=== PATIENT | female | born 1970 | race Caucasian/White ===

== ENCOUNTER 2019-12-07 01:50 | Inpatient (IN) | payer OTHER ==
[2019-12-07] VITALS (8 sets, daily range): BP systolic 106–128; BP diastolic 56–78
[~2019-12-07] VITALS: Ht 160 cm; Wt 89.0 kg
[~2019-12-07 01:50] MED LIST: ATIVAN0.5 MG PO; PREDNISONE10 MG PO
[2019-12-07 02:32] LABS: BILIRUBIN NEGATIVE (NEGATIVE); BLOOD 2+ (NEGATIVE); CLARITY CLEAR (CLEAR); COLOR YELLOW (YELLOW); GLUCOSE NEGATIVE (NEGATIVE); KETONE 1+ (NEGATIVE); NITRITE NEGATIVE (NEGATIVE); SPECIFIC GRAVITY 1.015 (1.005-1.030); UROBILINOGEN 0.2 E.U./dl (0.2-1.0)
[2019-12-07 02:35] LABS: LEUKO ESTERASE NEGATIVE (NEGATIVE)
[2019-12-07 02:37] LABS: BACTERIA 1+
[2019-12-07 02:50] LABS: BASO % 0.1 % (0.0-1.0); EOS % 0.1 % (1.0-4.0); HEMATOCRIT 40.6 % (37.0-47.0); LYMPH # 1.8 10*3/uL (1.3-4.4); LYMPH % 12.8 % (27.0-41.0); MEAN CELL VOLUME 90.4 fl (81.0-99.0); MEAN CORPUSCULAR HGB 30.5 pg (27.0-31.0); MEAN CORPUSCULAR HGB CONC 33.7 g/dl (33.0-37.0); MEAN PLATELET VOLUME 10.9 fl (9.6-12.3); MONO # 0.9 10*3/uL (0.1-1.0); MONO % 5.9 % (3.0-9.0); NEUT # 11.6 10*3/uL (2.3-7.9); NEUT % 80.8 % (47.0-73.0); PLATELET COUNT AUTOMATED 248 10*3/uL (130-400); RED BLOOD COUNT 4.49 10*6/uL (4.10-5.10); RED CELL DISTRI WIDTH 12.9 % (0-14.5); WHITE BLOOD COUNT 14.3 10*3/uL (4.8-10.8)
[2019-12-07 03:05] LABS: ALBUMIN 3.5 gm/dl (3.1-4.5); ALKALINE PHOSPHATASE 75 U/L (45-117); BUN 14 mg/dl (7-24); CHLORIDE 106 mmol/L (98-107); CREATININE 0.91 mg/dL (0.55-1.02); LIPASE 59 U/L (73-393); POTASSIUM 3.5 mmol/L (3.5-5.1); SGOT/AST 13 IU/L (3-35); SGPT/ALT 18 U/L (12-78); SODIUM 137 mmol/L (136-145)
--- NOTE | 2019-12-07 03:22 | NUR ---
PT RESTING ON CART, DRINKING IV DYE FOR CT. REPORTS MEDICATION HELPED PAIN AND NAUSEA. DENIES UNMET NEEDS. CALL LIGHT IN REACH. WILL CONTINUE TO MONITOR.
--- NOTE | 2019-12-07 06:35 | NUR ---
PT REPORTS WORSENING PAIN, DR BAILEY AWARE.
--- NOTE | 2019-12-07 06:47 | NUR ---
PT GIVEN ADDITIONAL DOSE PAIN MEDICATION, RESTING ON CART, C/O CONTINUED SEVERE ABDOMINAL PAIN. CALL LIGHT IS IN REACH. PT AWARE OF PLAN FOR ADMISSION AND WAITING ON BED. PT DENIES FURTHER NEEDS. WILL CONTINUE TO MONITOR.
--- NOTE | 2019-12-07 07:02 | NUR ---
REPORT TO DEVIKA SHAFFER
--- NOTE | 2019-12-07 07:48 | NUR ---
PT RESTING COMFORTABLY. SAFETY PRECAUTIONS INTACT. WILL CONTINUE TO MONITOR.
--- NOTE | 2019-12-07 08:08 | NUR ---
Time: 808 A 49 year old FEMALE admitted to 5E under services of NOLBERTO COSBY DO. Pt. arrived via stretcher from ER. Chief complaint: ABDOMINAL PAIN AND RECTAL BLEEDING. KENY VELASCO
[2019-12-07] MEDS ORDERED: COLACE100 MG PO (08:25)
[2019-12-07] MEDS ORDERED: ASPIRIN81 M1 PO (08:25)
--- NOTE | 2019-12-07 09:23 | NUR ---
MORPHINE 2MG IV GIVEN PER PATIENT REQUEST FOR ABDOMINAL PAIN RATING A 7/10.
--- NOTE | 2019-12-07 09:37 | NUR ---
DR MILLAN NOTIFIED OF CONSULT.
--- NOTE | 2019-12-07 10:15 | NUR ---
MORPHINE NOT EFFECTIVE FOR PAIN AT THIS TIME. NORCO 5/325 PO GIVEN PER PATIENT REQUEST.
--- NOTE | 2019-12-07 11:15 | NUR ---
RESTING WITH EYES CLOSED. NO SIGNS OF PAIN AT THIS TIME. PAIN MEDICATION EFFECTIVE.
--- NOTE | 2019-12-07 13:56 | NUR ---
MORHINE 2MG IV GIVEN PER PATIENT REQUEST FOR 1010 ABDOMINAL PAIN.
--- NOTE | 2019-12-07 15:19 | NUR ---
norco 5/325 given per patient request for abdominal pain rating a 10/10.
--- NOTE | 2019-12-07 16:04 | NUR ---
PT STATES THAT [place] HELPED WILL MONITOR CALL LIGHT WITHIN REACH
--- NOTE | 2019-12-07 18:03 | NUR ---
PT REQUESTED AND GIVEN MORPHINE FOR C/O ABD PAIN PT RATES PAIN 8 WILL MONITOR
--- NOTE | 2019-12-07 18:40 | NUR ---
PT STATES THAT MORPHINE HELPED WILL CONT TO MONITOR
--- NOTE | 2019-12-07 18:46 | NUR ---
PT MEDICATED WITH IV ZOFRAN FOR C/O NAUSEA. WILL MONITOR
--- NOTE | 2019-12-07 19:20 | NUR ---
REPORT RECEIVED FROM ZAKI FORTUNE. PT LYING IN BED AT THIS TIME. PT STATES ZOFRAN HELPED HER NAUSEA. CALL LIGHT IN REACH
--- NOTE | 2019-12-07 20:47 | NUR ---
PT MEDICATED WITH NORCO FOR COMPLAINTS OF ABDOMINAL PAIN. WILL MONITOR EFFECTIVENESS
--- NOTE | 2019-12-07 21:15 | NUR ---
NORCO APPEARS EFFECTIVE, PT SLEEPING AT THIS TIME.
[2019-12-08] VITALS: BP 106/52
--- NOTE | 2019-12-08 00:52 | NUR ---
NORCO GIVEN PER ORDER FOR COMPLAINTS OF ABDOMINAL PAIN/CRAMPING. WILL MONITOR EFFECTIVENESS
--- NOTE | 2019-12-08 01:35 | NUR ---
PT SLEEPING, NORCO APPEARS EFFECTIVE
--- NOTE | 2019-12-08 05:19 | NUR ---
NORCO GIVEN FOR COMPLAINTS OF ABDOMINAL PAIN. WILL MONITOR EFFECTIVENESS.
--- NOTE | 2019-12-08 06:00 | NUR ---
PER PT, NORCO HELPED. PT STATES "I FEEL SO MUCH BETTER"
[2019-12-08 08:00] VITALS: BP 109/76
[2019-12-08 08:11] LABS: ACT PARTIAL THROMBO TIME 28.7 SECONDS (20.0-32.1)
[2019-12-08 08:13] LABS: BASO % 0.3 % (0.0-1.0); EOS # 0.2 10*3/uL (0.0-0.4); EOS % 1.6 % (1.0-4.0); HEMATOCRIT 37.4 % (37.0-47.0); LYMPH % 23.1 % (27.0-41.0); MEAN CORPUSCULAR HGB 30.8 pg (27.0-31.0); MEAN CORPUSCULAR HGB CONC 32.6 g/dl (33.0-37.0); MEAN PLATELET VOLUME 11.7 fl (9.6-12.3); MONO % 7.9 % (3.0-9.0); NEUT # 8.7 10*3/uL (2.3-7.9); NEUT % 66.6 % (47.0-73.0); PLATELET COUNT AUTOMATED 198 10*3/uL (130-400); RED BLOOD COUNT 3.96 10*6/uL (4.10-5.10); RED CELL DISTRI WIDTH 13.2 % (0-14.5); WHITE BLOOD COUNT 13.1 10*3/uL (4.8-10.8)
[2019-12-08 08:15] LABS: BUN 6 mg/dl (7-24); CHLORIDE 110 mmol/L (98-107); CHOLESTEROL 177 mg/dL (<200); CREATININE 0.82 mg/dL (0.55-1.02); HDL CHOLESTEROL 49 mg/dl (40-60); LDL CHOLESTEROL 111 mg/dL (9-159); MEAN CELL VOLUME 94.4 fl (81.0-99.0); POTASSIUM 3.6 mmol/L (3.5-5.1); SODIUM 141 mmol/L (136-145); TRIGLYCERIDES 87 mg/dl (<150); VLDL CHOLESTEROL 17 mg/dL (6-40)
[2019-12-08 12:00] VITALS: BP 131/68
--- NOTE | 2019-12-08 15:04 | NUR ---
Marketing Strategy Analyst in to talk to patient. Patient states lives at HOME with . There are FEW steps in the home. Physician: NONE AT THIS TIME Pharmacy: [facility] Home health services: NONE Patient's level of ADLs: INDEPENDENT Patient has working utilities: YES DME: NONE Follow-up physician's appointment after d/c: WILL FIND ONE AND MAKE APPOINTMENT ON DISCHARGE Does patient want to access PORTAL?: NO Discharge plan PT LIVES AT HOME WITH HER AND IS INDEPENDENT IN HER CARE. DENIES SHE WILL HAVE NEEDS ON DISCHARGE. PLAN IS TO RETURN HOME WHEN MEDICALLY STABLE. WILL CONTINUE TO FOLLOW.. KARISSA PEREZ
[2019-12-08 16:00] VITALS: BP 126/67
--- NOTE | 2019-12-08 16:05 | NUR ---
MEDICATED WITH PRN NORCO PER ORDER AND REQUEST FOR ABDOMINAL PAIN RATED AT A 8 OUT OF 10.
--- NOTE | 2019-12-08 17:00 | NUR ---
JEAN CARLOS HELPED.
[2019-12-08 20:00] VITALS: BP 129/68
--- NOTE | 2019-12-08 20:07 | NUR ---
PT MEDICATED W/ZOFRAN FOR C/O NAUSEA AND MORPHINE IVP FOR C/O DIFFUSE ABD PAIN 02/21. CALL LIGHT IN REACH.
--- NOTE | 2019-12-08 20:59 | NUR ---
PT MEDICATED W/NORCO FOR C/O DIFFUSE ABD CRAMPING 11/21.
--- NOTE | 2019-12-08 21:59 | NUR ---
PT RESTING QUIETLY IN BED. PRN NORCO EFFECTIVE FOR PAIN RELIEF. PT ANXIOUS. WORRIED ABOUT NOT BEING ABLE TO SLEEP, HER IV, HER STOOL SMELLING FOUL, ETC. PT TEACHING AND COMFORT GIVEN. CALL LIGHT IN REACH.
[2019-12-09] VITALS: BP 106/63
--- NOTE | 2019-12-09 01:11 | NUR ---
PT MEDICATED W/NORCO FOR C/O DIFFUSE ABD CRAMPING 12/22.
--- NOTE | 2019-12-09 02:10 | NUR ---
PT RESTING QUIETLY IN BED. NO S/S OF DISTRESS NOTED. PRN NORCO EFFECTIVE.
[2019-12-09 04:00] VITALS: BP 135/81
--- NOTE | 2019-12-09 05:36 | NUR ---
PT C/O DIZZINESS. BILATERAL HAND TREMORS NOTED. BS 87. BP 135/81. HR 64. PT GIVEN GINGERALE PER HER REQUEST. WILL CONTINUE TO MONITOR. CALL LIGHT IN REACH.
[2019-12-09 06:01] LABS: BASO % 0.3 % (0.0-1.0); EOS # 0.2 10*3/uL (0.0-0.4); EOS % 1.2 % (1.0-4.0); HEMATOCRIT 36.5 % (37.0-47.0); LYMPH # 3.6 10*3/uL (1.3-4.4); MEAN CELL VOLUME 93.6 fl (81.0-99.0); MEAN CORPUSCULAR HGB CONC 33.2 g/dl (33.0-37.0); MEAN PLATELET VOLUME 11.2 fl (9.6-12.3); MONO # 0.9 10*3/uL (0.1-1.0); MONO % 6.7 % (3.0-9.0); NEUT % 65.5 % (47.0-73.0); PLATELET COUNT AUTOMATED 189 10*3/uL (130-400); WHITE BLOOD COUNT 13.7 10*3/uL (4.8-10.8)
[2019-12-09 06:03] LABS: BUN 5 mg/dl (7-24); CHLORIDE 111 mmol/L (98-107); CREATININE 0.81 mg/dL (0.55-1.02); POTASSIUM 3.4 mmol/L (3.5-5.1); SODIUM 141 mmol/L (136-145)
--- NOTE | 2019-12-09 06:11 | NUR ---
PT MEDICATED W/IVP ZOFRAN FOR C/O NAUSEA. PT SITTING IN RECLINER CHAIR IN ROOM.
--- NOTE | 2019-12-09 07:58 | NUR ---
FLEXERIL GIVEN PER REQUEST OF KNEE PAIN/MUSCHLE SPASMS. WILL MONITOR. CALL LIGHT IN REACH.
[2019-12-09 08:00] VITALS: BP 127/63
--- NOTE | 2019-12-09 08:46 | NUR ---
FLEXERIL INEFFECTIVE. WILL GIVE PERCOCET.
--- NOTE | 2019-12-09 09:10 | NUR ---
PERCOCET GIVEN FOR C/O KNEE PAIN, CHONIC IN NATURE. WILL MONITOR. CALL LIGHT IN REACH.
--- NOTE | 2019-12-09 09:17 | NUR ---
ZOFRAN GIVEN FOR COMPLAINTS OF NAUSEA. STATES IT STARTED WHEN THE IV ABX DID TODAY AND PROGRESSIVLY HAS WORSENED. WILL MONITOR. ABX CONTINUE TO INFUSE WITH EASE. CALL LIGHT IN REACH.
--- NOTE | 2019-12-09 10:03 | NUR ---
PER PT, PERCOCET EFFECTIVE.
[2019-12-09] MEDS ORDERED: FLAGYL250 MG PO (11:24)
[2019-12-09] MEDS ORDERED: CIPRO250 MG PO (11:24)
[2019-12-09] MEDS ORDERED: PHENERGAN25 M3 PO (11:24)
[2019-12-09 11:39] VITALS: BP 114/58
--- NOTE | 2019-12-09 11:44 | NUR ---
Discharge instructions reviewed with patient/family. Patient receptive and verbalizes understanding. Follow-up care arranged. Written instructions given to patient/family. LESLY NASCIMENTO
== END 2019-12-09 11:44 | disposition home or self-care (01) | DRG 392 ==
LOC: ED 01:50 → EDHOLD 06:09 → 5E 06:09
PROVIDERS: Emergency Medicine; Family Medicine; Internal Medicine; ADMIT Internal Medicine
DX: K52.9 Noninfective gastroenteritis and colitis, unspecified (principal); D68.51 Activated protein C resistance; D72.820 Lymphocytosis (symptomatic); R73.9 Hyperglycemia, unspecified; R00.1 Bradycardia, unspecified; Z72.0 Tobacco use; Z83.79 Family history of other diseases of the digestive system; Z90.49 Acquired absence of other specified parts of digestive tract; Z98.51 Tubal ligation status; Z80.0 Family history of malignant neoplasm of digestive organs; Z82.49 Family history of ischemic heart disease and other diseases of the circulatory system; Z83.2 Family history of diseases of the blood and blood-forming organs and certain disorders involving the immune mechanism; Z83.3 Family history of diabetes mellitus; Z80.3 Family history of malignant neoplasm of breast; Z88.2 Allergy status to sulfonamides; Z91.041 Radiographic dye allergy status; Z79.82 Long term (current) use of aspirin; Z79.899 Other long term (current) drug therapy

== ENCOUNTER → 2019-12-18 | Outpatient (CLI) | payer OTHER ==
[~2019-12-18] MED LIST changes: +ASPIRIN81 M1 PO; +CIPRO250 MG PO; +COLACE100 MG PO; +FLAGYL250 MG PO; +PHENERGAN25 M3 PO
== END | disposition home or self-care (01) ==
LOC: LAB 12:59
DX: K90.0 Celiac disease (principal)

== ENCOUNTER 2020-09-25 19:33 | Emergency (ER) | payer OTHER ==
[~2020-09-25] VITALS: Ht 157.4 cm; Wt 76.2 kg
[2020-09-25 20:17] LABS: BASO # 0.1 10*3/uL (0.0-0.1); BASO % 0.5 % (0.0-1.0); EOS # 0.1 10*3/uL (0.0-0.4); EOS % 0.6 % (1.0-4.0); HEMATOCRIT 41.6 % (37.0-47.0); LYMPH % 31.8 % (27.0-41.0); MEAN CELL VOLUME 93.5 fl (81.0-99.0); MEAN CORPUSCULAR HGB 30.6 pg (27.0-31.0); MEAN CORPUSCULAR HGB CONC 32.7 g/dl (33.0-37.0); MEAN PLATELET VOLUME 11.3 fl (9.6-12.3); MONO # 0.9 10*3/uL (0.1-1.0); MONO % 9.1 % (3.0-9.0); NEUT # 5.5 10*3/uL (2.3-7.9); NEUT % 57.8 % (47.0-73.0); PLATELET COUNT AUTOMATED 240 10*3/uL (130-400); RED BLOOD COUNT 4.45 10*6/uL (4.10-5.10); RED CELL DISTRI WIDTH 12.7 % (0-14.5); WHITE BLOOD COUNT 9.5 10*3/uL (4.8-10.8)
[2020-09-25 20:32] LABS: ALBUMIN 3.7 gm/dl (3.1-4.5); ALKALINE PHOSPHATASE 74 U/L (45-117); BUN 11 mg/dl (7-24); CHLORIDE 105 mmol/L (98-107); CREATININE 0.84 mg/dL (0.55-1.02); LIPASE 53 U/L (73-393); POTASSIUM 3.4 mmol/L (3.5-5.1); SGOT/AST 12 IU/L (3-35); SGPT/ALT 22 U/L (12-78); SODIUM 137 mmol/L (136-145); TOTAL PROTEIN 7.1 gm/dL (6.4-8.2)
== END 2020-09-25 21:57 | disposition home or self-care (01) ==
LOC: ED 19:33
PROVIDERS: Emergency Medicine
DX: R11.0 Nausea (principal); R53.83 Other fatigue; F32.9 Major depressive disorder, single episode, unspecified; F17.200 Nicotine dependence, unspecified, uncomplicated; Z88.2 Allergy status to sulfonamides; Z91.041 Radiographic dye allergy status; Z79.2 Long term (current) use of antibiotics; Z79.899 Other long term (current) drug therapy; Z79.82 Long term (current) use of aspirin; Z90.49 Acquired absence of other specified parts of digestive tract; Z98.51 Tubal ligation status; Z91.030 Bee allergy status

== ENCOUNTER 2020-11-06 12:44 | Emergency (ER) | payer OTHER ==
[2020-11-06 13:32] LABS: BILIRUBIN Negative (Negative); BLOOD Negative (Negative); CLARITY Clear (Clear); COLOR Yellow (Yellow); GLUCOSE Negative (Negative); KETONE Negative (Negative); LEUKO ESTERASE Negative (Negative); NITRITE Negative (Negative); PH 7.5 (4.5-8.0); SPECIFIC GRAVITY <= 1.005 (1.001-1.030); UROBILINOGEN 0.2 E.U./dl (0.0-1.0)
[2020-11-06 13:43] LABS: BASO # 0.1 10*3/uL (0.0-0.1); BASO % 0.5 % (0.0-1.0); EOS # 0.4 10*3/uL (0.0-0.4); EOS % 3.4 % (1.0-4.0); HEMATOCRIT 39.8 % (37.0-47.0); LYMPH % 26.9 % (27.0-41.0); MEAN CORPUSCULAR HGB 30.4 pg (27.0-31.0); MEAN CORPUSCULAR HGB CONC 32.7 g/dl (33.0-37.0); MONO # 0.7 10*3/uL (0.1-1.0); MONO % 6.3 % (3.0-9.0); NEUT # 6.9 10*3/uL (2.3-7.9); NEUT % 62.6 % (47.0-73.0); PLATELET COUNT AUTOMATED 255 10*3/uL (130-400); RED BLOOD COUNT 4.28 10*6/uL (4.10-5.10); RED CELL DISTRI WIDTH 13.6 % (0-14.5)
[2020-11-06 13:51] LABS: RBC 0-2 rbc/hpf (0-2); WBC 0-2 wbc/hpf (0-5)
[2020-11-06 13:56] LABS: ALBUMIN 3.2 gm/dl (3.1-4.5); ALKALINE PHOSPHATASE 81 U/L (45-117); BUN 10 mg/dl (7-24); CHLORIDE 107 mmol/L (98-107); CREATININE 0.96 mg/dL (0.55-1.02); LIPASE 66 U/L (73-393); POTASSIUM 3.9 mmol/L (3.5-5.1); SGOT/AST 10 IU/L (3-35); SGPT/ALT 16 U/L (12-78); SODIUM 140 mmol/L (136-145); TOTAL PROTEIN 6.9 gm/dL (6.4-8.2)
[2020-11-06] MEDS ORDERED: REGLAN10 M1 PO ×2 (15:19)
== END 2020-11-06 15:43 ==
LOC: ED 12:44
PROVIDERS: Emergency Medicine
DX: R10.30 Lower abdominal pain, unspecified (principal); F32.9 Major depressive disorder, single episode, unspecified; Z91.041 Radiographic dye allergy status; Z88.2 Allergy status to sulfonamides; Z79.82 Long term (current) use of aspirin; Z79.899 Other long term (current) drug therapy; Z90.49 Acquired absence of other specified parts of digestive tract; Z98.51 Tubal ligation status